=== PATIENT | female | born 1995 | race Caucasian/White ===

== ENCOUNTER 2018-10-07 22:25 | Inpatient (IN) | payer BC, MEDICAID ==
[~2018-10-07] VITALS: Ht 154.9 cm; Wt 51.5 kg
--- NOTE | 2018-10-07 22:41 | NUR ---
Per Poison Control: Check labs for ASA, tylenol, etoh, chem 8 and obtain EKG. Watch for [employer] depression, tachycardia, seizure, QRS widening and QTC prolongation. Not necessary to give charcoal at this point. Re-check tylenol level at 0100; if lab value >150 then given mucamist, if QTC prolongation then optimize electrolytes and if QRS widening then give bicarb bolus; if acetaminophen lab value is <150 then observe for 6 hrs until medically cleared.
[2018-10-07 22:50] LABS: BASOPHILS # (AUTO) 0.1 X10'3 (0-0.2); BASOPHILS % (AUTO) 0.6 % (0-1); EOSINOPHILS # (AUTO) 0.2 X10'3 (0-0.9); EOSINOPHILS % (AUTO) 2.7 % (0-6); HEMATOCRIT 40.8 % (35.0-45.0); HEMOGLOBIN 14.3 g/dl (12.0-16.0); LYMPHOCYTES # (AUTO) 3.3 X10'3 (1.1-4.8); LYMPHOCYTES % (AUTO) 40.6 % (21-51); MEAN CORPUSCULAR HEMOGLOBIN 31.1 PG (27.0-31.0); MEAN PLATELET VOLUME 6.9 FL (7.4-10.4); MONOCYTES # (AUTO) 0.8 X10'3 (0-0.9); MONOCYTES % (AUTO) 9.3 % (2-12); NEUTROPHILS # (AUTO) 3.8 X10'3 (1.8-7.7); NEUTROPHILS % (AUTO) 46.8 % (42-75); PLATELET COUNT 309 X10'3 (140-440); RED BLOOD COUNT 4.59 X10'6 (4.20-5.60); RED CELL DISTRIBUTION WIDTH 12.7 % (11.5-14.5); WHITE BLOOD COUNT 8.1 X10'3 (4.5-11.0)
--- NOTE | 2018-10-07 22:56 | NUR ---
pt up to BR with mother to get ua
[2018-10-07] MEDS ORDERED: NO HOME MEDS (22:57)
--- NOTE | 2018-10-07 23:00 | NUR ---
PLACED IN ROOM, IN BR NOW TO PROVIDE URINE SAMPLE, PARENTS AT BEDSIDE. AWAITIING ER
[2018-10-07] MEDS ORDERED: normal saline 1000ml 1,000 ML IVB ONE (23:04)
[2018-10-07 23:10] LABS: ALANINE AMINOTRANSFERASE 15 U/L (12-78); ALBUMIN 4.4 G/DL (3.4-5.0); ALBUMIN/GLOBULIN RATIO 1.4 (1.1-1.5); ALKALINE PHOSPHATASE 34 IU/L (46-116); ANION GAP 12 (8-16); ASPARTATE AMINO TRANSFERASE 12 U/L (10-37); BILIRUBIN,TOTAL 0.4 MG/DL (0.1-1.0); BLOOD UREA NITROGEN 14 MG/DL (7-18); BUN/CREATININE RATIO 12.6 (6.6-38.0); CALCIUM 9.2 MG/DL (8.5-10.1); CHLORIDE 101 MMOL/L (99-107); CREATININE 1.11 MG/DL (0.40-0.90); ETHANOL < 0.010 GM/DL (0.0-0.010); GLUCOSE 109 MG/DL (70-104); SODIUM 139 MMOL/L (135-145); TOTAL CARBON DIOXIDE 25.9 MMOL/L (24-32); TOTAL PROTEIN 7.5 G/DL (6.4-8.2); eGFR 61 ML/MIN
[2018-10-07 23:13] LABS: ACETAMINOPHEN 136.6 UG/ML (10-30); POTASSIUM 2.9 MMOL/L (3.5-5.1)
[2018-10-07 23:28] LABS: URINE AMPHETAMINE SCREEN NEGATIVE (Neg); URINE BARBITUATE SCREEN NEGATIVE (Neg); URINE BENZODIAZEPINES SCREEN NEGATIVE (Neg); URINE CANNABINOID SCREEN NEGATIVE (Neg); URINE COCAINE SCREEN NEGATIVE (Neg); URINE METHADONE SCREEN NEGATIVE (Neg); URINE OPIATE SCREEN NEGATIVE (Neg); URINE PHENCYCLIDINE SCREEN NEGATIVE (Neg)
[2018-10-07] MEDS ORDERED: potassium Cl 10 mEq/100mL bag IV ONE (23:55)
[2018-10-07] MEDS ORDERED: ondansetron/PF 4mg/2ml inj IV ONE (23:55)
--- NOTE | 2018-10-08 00:17 | NUR ---
Awaiting 1 am tylenol draw. Remains zena 48-54 bpm. current bp 95/52. Parents remains at bedside. Pt is cooperative with care. Given zofran, continues to have nausea. K 10 meq infusing (1st of 2 bags).
--- NOTE | 2018-10-08 02:45 | NUR ---
K+ 10 mEq bag 2 of 2 hung. Pt with no complaints.
[2018-10-08] MEDS ORDERED: potassium Cl 20 mEq SR tablet PO STA (04:37)
[2018-10-08] MEDS ORDERED: ondansetron/PF 4mg/2ml inj IV ONE (04:40)
--- NOTE | 2018-10-08 05:09 | NUR ---
Poison control calling back. He reports that Pt's tylenol level at the 0130 draw is concerning (although trending down). Recommendation to redraw tylenol level now (8 hr since ingestion) and if greater than or equal to 75 she needs to be treated with acetadote. Dr. Greene updated.
[2018-10-08] MEDS ORDERED: BUPR1FIL3 SL (06:17)
[2018-10-08 08:12] LABS: POTASSIUM 3.5 MMOL/L (3.5-5.1)
[2018-10-08 08:16] LABS: ACETAMINOPHEN 95.3 UG/ML (10-30)
[2018-10-08] MEDS ORDERED: DEXTROSE 5% IV ONE ×3 (09:45→14:44)
[2018-10-08] MEDS ORDERED: WATER IV ONE ×3 (09:45→14:44)
[2018-10-08] MEDS ORDERED: ACETYLCYSTEINE IV ONE ×3 (09:45→14:44)
[2018-10-08] MEDS ORDERED: magnesium hydroxide 30ml (MOM) UD suspension PO PRN (10:05)
[2018-10-08] MEDS ORDERED: magnesium 2GM in 50ml NS 50 ML IV PRN (10:05)
[2018-10-08] MEDS ORDERED: potassium Cl 20 mEq SR tablet PO PRN (10:05)
[2018-10-08] MEDS ORDERED: potassium CL 10mEq/100ml bag 100 ML IV PRN (10:05)
[2018-10-08] MEDS: K and/or MAG REPLACEMENT MC SCH (10:05)
[2018-10-08] MEDS ORDERED: mag hydrox/Alum hydrox/simeth 30ml oral suspension PO PRN (10:05)
[2018-10-08] MEDS ORDERED: magnesium Cl slow-release 64mg tablet PO PRN (10:05)
[2018-10-08] MEDS ORDERED: potassium Cl 40MEQ/NS 500ml 500 ML IV PRN (10:05)
[2018-10-08] MEDS ORDERED: magnesium 4gm in 100ml NS 100 ML IV PRN (10:05)
[2018-10-08 10:45] LABS: ALANINE AMINOTRANSFERASE 78 U/L (12-78); ALBUMIN 3.7 G/DL (3.4-5.0); ALBUMIN/GLOBULIN RATIO 1.4 (1.1-1.5); ALKALINE PHOSPHATASE 27 IU/L (46-116); ANION GAP 7 (8-16); ASPARTATE AMINO TRANSFERASE 68 U/L (10-37); BILIRUBIN,TOTAL 0.4 MG/DL (0.1-1.0); BLOOD UREA NITROGEN 12 MG/DL (7-18); BUN/CREATININE RATIO 14.3 (6.6-38.0); CALCIUM 8.7 MG/DL (8.5-10.1); CHLORIDE 106 MMOL/L (99-107); CREATININE 0.84 MG/DL (0.40-0.90); GLUCOSE 112 MG/DL (70-104); POTASSIUM 3.7 MMOL/L (3.5-5.1); SODIUM 137 MMOL/L (135-145); TOTAL CARBON DIOXIDE 24.3 MMOL/L (24-32); TOTAL PROTEIN 6.3 G/DL (6.4-8.2); eGFR 84 ML/MIN
[2018-10-08 11:05] LABS: PARTIAL THROMBOPLASTIN TIME 24 SECONDS (22-32)
[2018-10-08] MEDS: ondansetron/PF 4mg/2ml inj IV PRN (11:35)
--- NOTE | 2018-10-08 12:17 | NUR ---
ATTEMPT TO GIVE REPORT TO RN POLAR AT THIS TIME. RN TO CALL BACK. CN MADE AWARE.
[2018-10-08 12:28] LABS: CLARITY,URINE CLOUDY (Clear); COLOR,URINE YELLOW (Yellow); GLUCOSE, URINE NEGATIVE (Neg); KETONES,URINE >=80 mg/dl (Neg); LEUKOCYTE ESTERASE ,URINE SMALL (Neg); NITRITES, URINE NEGATIVE (Neg); OCCULT BLOOD,URINE NEGATIVE (Neg); PROTEIN,URINE TRACE mg/dl (Neg)
[2018-10-08 12:31] LABS: UA COLLECTION TYPE CLN CATCH MIDSTREAM
[2018-10-08 12:43] LABS: RBC,URINE NONE SEEN /HPF (0-2); WBC,URINE 20-30 /HPF (0-4)
[2018-10-08 12:44] LABS: AMORPHOUS PHOSPHATES 3+
[2018-10-08 12:45] LABS: BACTERIA,URINE 1+ /HPF (Neg); MUCUS STRANDS MODERATE /LPF (Neg); RENAL CELLS, URINE MODERATE /HPF; SQUAMOUS EPITHELIAL CELL,UR MANY /LPF (FEW); TRANSITIONAL EPI CELLS,URINE FEW /HPF
[2018-10-08] MEDS: normal saline 1000ml 1,000 ML IV SCH ×2 (13:00→20:04)
[2018-10-08 13:05] VITALS: BP 126/87
--- NOTE | 2018-10-08 13:05 | NUR ---
Pt received to room 355b via wc, VSS. Mother and sitter at bedside. Patient is A&O at this time.
[2018-10-08 15:30] LABS: URINE HCG NEGATIVE (NEG)
--- NOTE | 2018-10-08 18:19 | NUR ---
Problems reprioritized. Patient report given, questions answered & plan of care reviewed with Crys. Addendum: 10/08/18 at 1819 by Celine Pelayo RN Amended: Links added.
[2018-10-08 19:00] VITALS: BP 129/83
[2018-10-08] MEDS: CefTRIAXone/D5W-Rocephin 1gm 50 ML IV SCH (23:52)
[2018-10-09] VITALS: BP 109/79
[2018-10-09 06:01] LABS: BASOPHILS # (AUTO) 0.1 X10'3 (0-0.2); BASOPHILS % (AUTO) 0.8 % (0-1); EOSINOPHILS # (AUTO) 0.2 X10'3 (0-0.9); EOSINOPHILS % (AUTO) 2.4 % (0-6); HEMATOCRIT 38.5 % (35.0-45.0); HEMOGLOBIN 13.6 g/dl (12.0-16.0); LYMPHOCYTES # (AUTO) 1.8 X10'3 (1.1-4.8); LYMPHOCYTES % (AUTO) 27.2 % (21-51); MEAN CORPUSCULAR HEMOGLOBIN 31.5 PG (27.0-31.0); MEAN CORPUSCULAR HGB CONC 35.3 g/dL (33.0-36.5); MEAN CORPUSCULAR VOLUME 89.4 FL (78-98); MEAN PLATELET VOLUME 7.8 FL (7.4-10.4); MONOCYTES # (AUTO) 0.5 X10'3 (0-0.9); MONOCYTES % (AUTO) 7.3 % (2-12); NEUTROPHILS # (AUTO) 4.1 X10'3 (1.8-7.7); NEUTROPHILS % (AUTO) 62.3 % (42-75); PLATELET COUNT 230 X10'3 (140-440); RED CELL DISTRIBUTION WIDTH 12.7 % (11.5-14.5); WHITE BLOOD COUNT 6.5 X10'3 (4.5-11.0)
[2018-10-09] MEDS: normal saline 1000ml 1,000 ML IV SCH ×3 (06:04→21:31)
[2018-10-09 06:23] LABS: PARTIAL THROMBOPLASTIN TIME 26 SECONDS (22-32)
--- NOTE | 2018-10-09 06:30 | NUR ---
Problems reprioritized. Patient report given, questions answered & plan of care reviewed with Crys. Addendum: 10/09/18 at 8134 by Celine Pelayo RN Amended: Links added.
[2018-10-09 06:48] LABS: ALANINE AMINOTRANSFERASE 130 U/L (12-78); ALBUMIN 3.2 G/DL (3.4-5.0); ALBUMIN/GLOBULIN RATIO 1.2 (1.1-1.5); ALKALINE PHOSPHATASE 26 IU/L (46-116); ANION GAP 10 (8-16); ASPARTATE AMINO TRANSFERASE 98 U/L (10-37); BILIRUBIN,TOTAL 0.4 MG/DL (0.1-1.0); BLOOD UREA NITROGEN 6 MG/DL (7-18); BUN/CREATININE RATIO 7.5 (6.6-38.0); CALCIUM 8.5 MG/DL (8.5-10.1); CHLORIDE 106 MMOL/L (99-107); GLUCOSE 114 MG/DL (70-104); MAGNESIUM 1.8 MG/DL (1.5-2.4); PHOSPHORUS 2.8 MG/DL (2.3-4.5); POTASSIUM 3.3 MMOL/L (3.5-5.1); SODIUM 138 MMOL/L (135-145); TOTAL PROTEIN 5.9 G/DL (6.4-8.2); eGFR 89 ML/MIN
--- NOTE | 2018-10-09 06:52 | NUR ---
Problems reprioritized. Patient report given, questions answered & plan of care reviewed with Celine DONNELLY.
[2018-10-09 07:00] VITALS: BP 102/65
[2018-10-09] MEDS: K and/or MAG REPLACEMENT MC SCH (08:00)
[2018-10-09] MEDS: CefTRIAXone/D5W-Rocephin 1gm 50 ML IV SCH (08:00)
[2018-10-09] MEDS: potassium Cl 20 mEq SR tablet PO PRN ×2 (08:00→22:46)
[2018-10-09] MEDS ORDERED: WATER IV STA (09:31)
[2018-10-09] MEDS ORDERED: ACETYLCYSTEINE IV STA (09:31)
[2018-10-09] MEDS ORDERED: DEXTROSE 5% IV STA (09:31)
--- NOTE | 2018-10-09 09:34 | NUR ---
Spoke with Dr. Torres and Poison Control, will continue infusion for elevated LFT's. Spoke with Pharmacist as well.
[2018-10-09 11:59] VITALS: BP 106/59
--- NOTE | 2018-10-09 18:15 | NUR ---
Patient in room [facility]. I have received report from Celine DONNELLY and had the opportunity to ask questions and assume patient care.
--- NOTE | 2018-10-09 18:43 | NUR ---
Problems reprioritized. Patient report given, questions answered & plan of care reviewed with Carmencita. Addendum: 10/09/18 at 1843 by Celine Pelayo RN Amended: Links added.
[2018-10-09 20:00] VITALS: BP 129/91
[2018-10-09] MEDS: lactobacillus rhamnosus 10,000 MMU CELLS/CAPSULE PO SCH (21:29)
[2018-10-10] VITALS: BP 116/63
--- NOTE | 2018-10-10 01:15 | NUR ---
Poison control called this morning. Patient's mucomyst drip bag only has less than 100ml left in bag They recommended to recheck LFT's and INR now and Call them back with the results the results. Depending on the results will decide if patient needs another 16hr of mucomyst drip.
[2018-10-10 01:41] LABS: BASOPHILS # (AUTO) 0.1 X10'3 (0-0.2); BASOPHILS % (AUTO) 0.6 % (0-1); EOSINOPHILS # (AUTO) 0.3 X10'3 (0-0.9); EOSINOPHILS % (AUTO) 3.1 % (0-6); HEMATOCRIT 38.7 % (35.0-45.0); HEMOGLOBIN 13.3 g/dl (12.0-16.0); LYMPHOCYTES # (AUTO) 1.7 X10'3 (1.1-4.8); LYMPHOCYTES % (AUTO) 20.1 % (21-51); MEAN CORPUSCULAR HEMOGLOBIN 31.3 PG (27.0-31.0); MEAN CORPUSCULAR HGB CONC 34.4 g/dL (33.0-36.5); MEAN CORPUSCULAR VOLUME 90.8 FL (78-98); MEAN PLATELET VOLUME 7.4 FL (7.4-10.4); MONOCYTES # (AUTO) 0.5 X10'3 (0-0.9); MONOCYTES % (AUTO) 6.3 % (2-12); NEUTROPHILS # (AUTO) 5.8 X10'3 (1.8-7.7); NEUTROPHILS % (AUTO) 69.9 % (42-75); PLATELET COUNT 198 X10'3 (140-440); RED BLOOD COUNT 4.26 X10'6 (4.20-5.60); RED CELL DISTRIBUTION WIDTH 12.8 % (11.5-14.5); WHITE BLOOD COUNT 8.4 X10'3 (4.5-11.0)
[2018-10-10 01:51] LABS: ACETAMINOPHEN 2.2 UG/ML (10-30); ALANINE AMINOTRANSFERASE 497 U/L (12-78); ALBUMIN 3.1 G/DL (3.4-5.0); ALBUMIN/GLOBULIN RATIO 1.1 (1.1-1.5); ALKALINE PHOSPHATASE 38 IU/L (46-116); ANION GAP 5 (8-16); ASPARTATE AMINO TRANSFERASE 351 U/L (10-37); BILIRUBIN,TOTAL 0.2 MG/DL (0.1-1.0); BLOOD UREA NITROGEN 8 MG/DL (7-18); BUN/CREATININE RATIO 10.8 (6.6-38.0); CALCIUM 8.6 MG/DL (8.5-10.1); CHLORIDE 109 MMOL/L (99-107); CREATININE 0.74 MG/DL (0.40-0.90); GLUCOSE 119 MG/DL (70-104); MAGNESIUM 1.7 MG/DL (1.5-2.4); PHOSPHORUS 2.8 MG/DL (2.3-4.5); POTASSIUM 3.7 MMOL/L (3.5-5.1); SODIUM 140 MMOL/L (135-145); TOTAL CARBON DIOXIDE 25.8 MMOL/L (24-32); TOTAL PROTEIN 5.9 G/DL (6.4-8.2); eGFR > 90 ML/MIN
[2018-10-10 02:15] LABS: PARTIAL THROMBOPLASTIN TIME 24 SECONDS (22-32)
--- NOTE | 2018-10-10 02:30 | NUR ---
Poison control called again to report lab values AST-351, ALT-497, acetaminophen 2.2, INR-1.2. Recommended to continue with Mucomyst gtt for another 16hr, 100mh/kg. Also Recommends 1 hr prior to bag being empty to check Lab values LFT's, INR, and Acetaminophen. and call them with result for recommendations. Any questions to call Poison control.
[2018-10-10] MEDS ORDERED: DEXTROSE 5% IV ONE ×2 (02:40→18:50)
[2018-10-10] MEDS ORDERED: WATER IV ONE ×2 (02:40→18:50)
[2018-10-10] MEDS ORDERED: ACETYLCYSTEINE IV ONE ×2 (02:40→18:50)
--- NOTE | 2018-10-10 06:30 | NUR ---
Patient in room [facility]. I have received report from Richard DONNELLY and had the opportunity to ask questions and assume patient care.
[2018-10-10 07:00] VITALS: BP 123/77
[2018-10-10] MEDS: K and/or MAG REPLACEMENT MC SCH (08:00)
--- NOTE | 2018-10-10 08:06 | NUR ---
Patient in room [facility]. I have received report from ANDRZEJ Guzman and had the opportunity to ask questions and assume patient care.
[2018-10-10] MEDS: CefTRIAXone/D5W-Rocephin 1gm 50 ML IV SCH (08:18)
[2018-10-10] MEDS: lactobacillus rhamnosus 10,000 MMU CELLS/CAPSULE PO SCH ×2 (08:19→22:35)
--- NOTE | 2018-10-10 08:30 | NUR ---
Problems reprioritized. Patient report given, questions answered & plan of care reviewed with Barbara RN.
[2018-10-10 11:00] VITALS: BP 109/63
[2018-10-10 11:40] LABS: BILIRUBIN,DIRECT 0.1 MG/DL (0-0.3)
[2018-10-10] MEDS: normal saline 1000ml 1,000 ML IV SCH (18:02)
--- NOTE | 2018-10-10 18:10 | NUR ---
Patient in room [facility]. I have received report from Barbara DONNELLY and had the opportunity to ask questions and assume patient care.
--- NOTE | 2018-10-10 18:15 | NUR ---
Spoke to Poison Control. Communicated that per MD today ordered Hepatitis lipid panel for today and lab results are still pending. Called lab several times, lab results are still pending. Rosario from Poison Control stated to call back when results are back to see if patient will need another dose of acetylcysteine IV.
[2018-10-10 18:36] LABS: ALBUMIN 3.2 G/DL (3.4-5.0); ALBUMIN/GLOBULIN RATIO 1.1 (1.1-1.5); BILIRUBIN,DIRECT 0.1 MG/DL (0-0.3); BILIRUBIN,TOTAL 0.3 MG/DL (0.1-1.0); TOTAL PROTEIN 6.2 G/DL (6.4-8.2)
[2018-10-10 18:37] LABS: ACETAMINOPHEN < 2.0 UG/ML (10-30); ALANINE AMINOTRANSFERASE 852 U/L (12-78); ALKALINE PHOSPHATASE 34 IU/L (46-116); ASPARTATE AMINO TRANSFERASE 557 U/L (10-37)
[2018-10-10] MEDS ORDERED: acetylcysteine IV (Acetadote) 0 MG in dextrose 5%-water 1,000 ML IV ONE (18:45)
--- NOTE | 2018-10-10 18:49 | NUR ---
Problems reprioritized. Patient report given, questions answered & plan of care reviewed with ANDRZEJ Tse and ANDRZEJ Ramos.
--- NOTE | 2018-10-10 19:21 | NUR ---
Called poison control with updated LFT (AST 557, ALT 852). Recommended continuing Mucomyst drip for 16 hours, repeat LFTs, Acetaminophen, INR values one hour prior to bag being empty. Call for further recommendations with new lab values.
[2018-10-10 20:08] VITALS: BP 133/79
[2018-10-11] VITALS: BP 118/84
[2018-10-11 05:22] LABS: TOTAL CARBON DIOXIDE 26.7 MMOL/L (24-32)
[2018-10-11 05:27] LABS: BASOPHILS # (AUTO) 0.1 X10'3 (0-0.2); BASOPHILS % (AUTO) 0.9 % (0-1); EOSINOPHILS # (AUTO) 0.4 X10'3 (0-0.9); EOSINOPHILS % (AUTO) 5.5 % (0-6); HEMATOCRIT 36.9 % (35.0-45.0); HEMOGLOBIN 13.1 g/dl (12.0-16.0); LYMPHOCYTES # (AUTO) 1.3 X10'3 (1.1-4.8); LYMPHOCYTES % (AUTO) 18.8 % (21-51); MEAN CORPUSCULAR HEMOGLOBIN 31.9 PG (27.0-31.0); MEAN CORPUSCULAR HGB CONC 35.6 g/dL (33.0-36.5); MEAN CORPUSCULAR VOLUME 89.6 FL (78-98); MEAN PLATELET VOLUME 7.6 FL (7.4-10.4); MONOCYTES # (AUTO) 0.5 X10'3 (0-0.9); MONOCYTES % (AUTO) 7.3 % (2-12); NEUTROPHILS # (AUTO) 4.6 X10'3 (1.8-7.7); NEUTROPHILS % (AUTO) 67.5 % (42-75); PLATELET COUNT 173 X10'3 (140-440); RED BLOOD COUNT 4.12 X10'6 (4.20-5.60); RED CELL DISTRIBUTION WIDTH 13.3 % (11.5-14.5); WHITE BLOOD COUNT 6.9 X10'3 (4.5-11.0)
[2018-10-11 05:40] LABS: PARTIAL THROMBOPLASTIN TIME 24 SECONDS (22-32)
--- NOTE | 2018-10-11 06:24 | NUR ---
Patient in room [facility]. I have received report from Richard DONNELLY and had the opportunity to ask questions and assume patient care.
--- NOTE | 2018-10-11 06:47 | NUR ---
Problems reprioritized. Patient report given, questions answered & plan of care reviewed with Lizette DONNELLY.
[2018-10-11 07:00] VITALS: BP 105/70
[2018-10-11 07:05] LABS: ALBUMIN 2.9 G/DL (3.4-5.0); ALBUMIN/GLOBULIN RATIO 0.9 (1.1-1.5); ALKALINE PHOSPHATASE 27 IU/L (46-116); ANION GAP 5 (8-16); ASPARTATE AMINO TRANSFERASE 761 U/L (10-37); BILIRUBIN,DIRECT 0.1 MG/DL (0-0.3); BILIRUBIN,TOTAL 0.2 MG/DL (0.1-1.0); BLOOD UREA NITROGEN 5 MG/DL (7-18); BUN/CREATININE RATIO 7.6 (6.6-38.0); CALCIUM 8.4 MG/DL (8.5-10.1); CHLORIDE 108 MMOL/L (99-107); CREATININE 0.66 MG/DL (0.40-0.90); GLUCOSE 102 MG/DL (70-104); MAGNESIUM 1.7 MG/DL (1.5-2.4); POTASSIUM 3.5 MMOL/L (3.5-5.1); SODIUM 140 MMOL/L (135-145); eGFR > 90 ML/MIN
[2018-10-11 07:06] LABS: ALANINE AMINOTRANSFERASE 1196 U/L (12-78)
[2018-10-11] MEDS: CefTRIAXone/D5W-Rocephin 1gm 50 ML IV SCH (07:34)
[2018-10-11] MEDS: lactobacillus rhamnosus 10,000 MMU CELLS/CAPSULE PO SCH ×2 (07:34→19:12)
[2018-10-11] MEDS: K and/or MAG REPLACEMENT MC SCH (08:00)
[2018-10-11 11:00] VITALS: BP 100/69
[2018-10-11 11:33] LABS: ALBUMIN 2.9 G/DL (3.4-5.0); ALKALINE PHOSPHATASE 25 IU/L (46-116); BILIRUBIN,TOTAL 0.2 MG/DL (0.1-1.0); TOTAL PROTEIN 5.9 G/DL (6.4-8.2)
[2018-10-11 11:36] LABS: ACETAMINOPHEN < 2.0 UG/ML (10-30); ALANINE AMINOTRANSFERASE 1514 U/L (12-78); ASPARTATE AMINO TRANSFERASE 1048 U/L (10-37)
[2018-10-11] MEDS ORDERED: acetylcysteine IV (Acetadote) 0 MG in dextrose 5%-water 1,000 ML IV ONE (12:25)
--- NOTE | 2018-10-11 12:27 | NUR ---
patient seen by Dr edwards. LFT, acetaminophen and INR level rechecked. Enzymes elevated, see lab results.Poison control centre called. Acetadote to be continued at same rate over 16hrs. Will recheck in 6hrs. Dr Edwards aware.
[2018-10-11] MEDS ORDERED: WATER IV ONE (12:30)
[2018-10-11] MEDS ORDERED: DEXTROSE 5% IV ONE (12:30)
[2018-10-11] MEDS ORDERED: ACETYLCYSTEINE IV ONE (12:30)
[2018-10-11] MEDS: normal saline 1000ml 1,000 ML IV SCH (13:25)
[2018-10-11 17:12] LABS: ALBUMIN 2.9 G/DL (3.4-5.0); ALKALINE PHOSPHATASE 26 IU/L (46-116); BILIRUBIN,DIRECT 0.1 MG/DL (0-0.3); BILIRUBIN,TOTAL 0.2 MG/DL (0.1-1.0); TOTAL PROTEIN 5.9 G/DL (6.4-8.2)
[2018-10-11 17:16] LABS: ALANINE AMINOTRANSFERASE 1781 U/L (12-78); ASPARTATE AMINO TRANSFERASE 1133 U/L (10-37)
--- NOTE | 2018-10-11 17:57 | NUR ---
AST 1133, ALT [address] DR Asher called and Poison centre called and informed. Recommendation given to continue Acetadote. will continue to monitor.
--- NOTE | 2018-10-11 18:20 | NUR ---
Patient in room [facility]. I have received report from Lizette DONNELLY and had the opportunity to ask questions and assume patient care.
--- NOTE | 2018-10-11 18:28 | NUR ---
Problems reprioritized. Patient report given, questions answered & plan of care reviewed with Richard DONNELLY.
[2018-10-11] MEDS: ondansetron/PF 4mg/2ml inj IV PRN (19:21)
[2018-10-11 20:00] VITALS: BP 113/70
[2018-10-11 22:06] LABS: ALBUMIN 2.8 G/DL (3.4-5.0); ALBUMIN/GLOBULIN RATIO 0.9 (1.1-1.5); ALKALINE PHOSPHATASE 26 IU/L (46-116); BILIRUBIN,DIRECT 0.1 MG/DL (0-0.3); BILIRUBIN,TOTAL 0.2 MG/DL (0.1-1.0); TOTAL PROTEIN 5.8 G/DL (6.4-8.2)
[2018-10-11 22:07] LABS: ALANINE AMINOTRANSFERASE 1930 U/L (12-78); ASPARTATE AMINO TRANSFERASE 1172 U/L (10-37)
[2018-10-12] VITALS: BP 105/54
[2018-10-12 04:22] LABS: BASOPHILS # (AUTO) 0.1 X10'3 (0-0.2); BASOPHILS % (AUTO) 0.9 % (0-1); EOSINOPHILS # (AUTO) 0.3 X10'3 (0-0.9); EOSINOPHILS % (AUTO) 5.9 % (0-6); HEMATOCRIT 32.8 % (35.0-45.0); HEMOGLOBIN 11.6 g/dl (12.0-16.0); LYMPHOCYTES # (AUTO) 1.7 X10'3 (1.1-4.8); LYMPHOCYTES % (AUTO) 29.9 % (21-51); MEAN CORPUSCULAR HEMOGLOBIN 32.3 PG (27.0-31.0); MEAN CORPUSCULAR HGB CONC 35.4 g/dL (33.0-36.5); MEAN CORPUSCULAR VOLUME 91.2 FL (78-98); MEAN PLATELET VOLUME 7.7 FL (7.4-10.4); MONOCYTES # (AUTO) 0.5 X10'3 (0-0.9); MONOCYTES % (AUTO) 9.2 % (2-12); NEUTROPHILS # (AUTO) 3.1 X10'3 (1.8-7.7); NEUTROPHILS % (AUTO) 54.1 % (42-75); PLATELET COUNT 136 X10'3 (140-440); WHITE BLOOD COUNT 5.7 X10'3 (4.5-11.0)
[2018-10-12 04:29] LABS: ALBUMIN 2.7 G/DL (3.4-5.0); ALBUMIN/GLOBULIN RATIO 0.9 (1.1-1.5); ALKALINE PHOSPHATASE 22 IU/L (46-116); ANION GAP 5 (8-16); BILIRUBIN,TOTAL 0.2 MG/DL (0.1-1.0); BLOOD UREA NITROGEN 4 MG/DL (7-18); BUN/CREATININE RATIO 6.3 (6.6-38.0); CALCIUM 8.5 MG/DL (8.5-10.1); CHLORIDE 109 MMOL/L (99-107); CREATININE 0.63 MG/DL (0.40-0.90); GLUCOSE 93 MG/DL (70-104); MAGNESIUM 1.9 MG/DL (1.5-2.4); PHOSPHORUS 3.3 MG/DL (2.3-4.5); POTASSIUM 3.7 MMOL/L (3.5-5.1); SODIUM 140 MMOL/L (135-145); TOTAL CARBON DIOXIDE 26.2 MMOL/L (24-32); TOTAL PROTEIN 5.7 G/DL (6.4-8.2); eGFR > 90 ML/MIN
[2018-10-12 04:36] LABS: ALANINE AMINOTRANSFERASE 1983 U/L (12-78); ASPARTATE AMINO TRANSFERASE 1039 U/L (10-37)
[2018-10-12] MEDS ORDERED: DEXTROSE 5% IV ONE ×5 (04:45→20:00)
[2018-10-12] MEDS ORDERED: WATER IV ONE ×5 (04:45→20:00)
[2018-10-12] MEDS ORDERED: ACETYLCYSTEINE IV ONE ×5 (04:45→20:00)
[2018-10-12 04:50] LABS: BILIRUBIN,DIRECT 0.1 MG/DL (0-0.3)
--- NOTE | 2018-10-12 04:50 | NUR ---
Called Poison Control and spoke with Nando for lab values of AST 1039, ALT 1983, INR 1. Poison Control recommended to repeat 16 hour 100mg/kg Acetadote bag and call with new values an hour before the bad runs out for further instructions.
--- NOTE | 2018-10-12 06:12 | NUR ---
Problems reprioritized. Patient report given, questions answered & plan of care reviewed with Lizette DONNELLY.
--- NOTE | 2018-10-12 06:49 | NUR ---
Patient in room [facility]. I have received report from Richard DONNELLY and had the opportunity to ask questions and assume patient care.
--- NOTE | 2018-10-12 06:52 | NUR ---
Agree with care observed and charting reviewed for Richard DONNELLY.
[2018-10-12 07:00] VITALS: BP 98/67
[2018-10-12] MEDS: K and/or MAG REPLACEMENT MC SCH (08:00)
[2018-10-12] MEDS: lactobacillus rhamnosus 10,000 MMU CELLS/CAPSULE PO SCH ×2 (10:26→19:26)
[2018-10-12] MEDS: normal saline 1000ml 1,000 ML IV SCH (10:27)
[2018-10-12 11:00] VITALS: BP 104/63
[2018-10-12 11:43] LABS: ALBUMIN 2.9 G/DL (3.4-5.0); ALBUMIN/GLOBULIN RATIO 0.9 (1.1-1.5); ALKALINE PHOSPHATASE 21 IU/L (46-116); ASPARTATE AMINO TRANSFERASE 813 U/L (10-37); BILIRUBIN,TOTAL 0.2 MG/DL (0.1-1.0); TOTAL PROTEIN 6.1 G/DL (6.4-8.2)
[2018-10-12 11:45] LABS: ALANINE AMINOTRANSFERASE 1971 U/L (12-78)
[2018-10-12 18:00] VITALS: BP 111/74
--- NOTE | 2018-10-12 18:30 | NUR ---
Patient in room [facility]. I have received report from ANDRZEJ Bauer and had the opportunity to ask questions and assume patient care.
--- NOTE | 2018-10-12 18:46 | NUR ---
Good shift for patient Liver panel and INR now done Q8rly Poison control called with results and advises with Acetadote Infusion. patient seen by Dr Asher still is 1799, sitter present in room. No suicidal expression. Mother present in room. report given to Jazmin DONNELLY
[2018-10-12 20:15] LABS: ALBUMIN/GLOBULIN RATIO 0.9 (1.1-1.5); ALKALINE PHOSPHATASE 25 IU/L (46-116); BILIRUBIN,TOTAL 0.2 MG/DL (0.1-1.0); TOTAL PROTEIN 6.2 G/DL (6.4-8.2)
[2018-10-12 20:18] LABS: ALANINE AMINOTRANSFERASE 1768 U/L (12-78); ASPARTATE AMINO TRANSFERASE 538 U/L (10-37)
[2018-10-12 20:24] LABS: BILIRUBIN,DIRECT 0.1 MG/DL (0-0.3)
--- NOTE | 2018-10-12 20:43 | NUR ---
Spoke to Poison Control and based on patients most recent labs, they recommend the next bag of Acetadote to be given at 62.5 mL/hr
[2018-10-13] VITALS: BP 121/55
[2018-10-13] MEDS: normal saline 1000ml 1,000 ML IV SCH (05:03)
[2018-10-13 05:13] LABS: BASOPHILS # (AUTO) 0.1 X10'3 (0-0.2); BASOPHILS % (AUTO) 1.2 % (0-1); EOSINOPHILS # (AUTO) 0.5 X10'3 (0-0.9); EOSINOPHILS % (AUTO) 10.5 % (0-6); HEMATOCRIT 33.6 % (35.0-45.0); LYMPHOCYTES # (AUTO) 1.7 X10'3 (1.1-4.8); LYMPHOCYTES % (AUTO) 35.2 % (21-51); MEAN CORPUSCULAR HEMOGLOBIN 32.3 PG (27.0-31.0); MEAN CORPUSCULAR HGB CONC 35.8 g/dL (33.0-36.5); MEAN CORPUSCULAR VOLUME 90.4 FL (78-98); MEAN PLATELET VOLUME 7.6 FL (7.4-10.4); MONOCYTES # (AUTO) 0.5 X10'3 (0-0.9); MONOCYTES % (AUTO) 9.4 % (2-12); NEUTROPHILS # (AUTO) 2.1 X10'3 (1.8-7.7); NEUTROPHILS % (AUTO) 43.7 % (42-75); PLATELET COUNT 166 X10'3 (140-440); RED BLOOD COUNT 3.72 X10'6 (4.20-5.60); RED CELL DISTRIBUTION WIDTH 12.9 % (11.5-14.5); WHITE BLOOD COUNT 4.8 X10'3 (4.5-11.0)
[2018-10-13 05:45] LABS: ALBUMIN 2.8 G/DL (3.4-5.0); ALBUMIN/GLOBULIN RATIO 0.9 (1.1-1.5); ALKALINE PHOSPHATASE 23 IU/L (46-116); ANION GAP 7 (8-16); ASPARTATE AMINO TRANSFERASE 331 U/L (10-37); BILIRUBIN,DIRECT 0.1 MG/DL (0-0.3); BILIRUBIN,TOTAL 0.3 MG/DL (0.1-1.0); BLOOD UREA NITROGEN 4 MG/DL (7-18); BUN/CREATININE RATIO 6.8 (6.6-38.0); CALCIUM 8.8 MG/DL (8.5-10.1); CHLORIDE 108 MMOL/L (99-107); CREATININE 0.59 MG/DL (0.40-0.90); GLUCOSE 82 MG/DL (70-104); MAGNESIUM 1.9 MG/DL (1.5-2.4); PHOSPHORUS 3.8 MG/DL (2.3-4.5); POTASSIUM 3.6 MMOL/L (3.5-5.1); SODIUM 142 MMOL/L (135-145); TOTAL CARBON DIOXIDE 26.8 MMOL/L (24-32); TOTAL PROTEIN 5.9 G/DL (6.4-8.2); eGFR > 90 ML/MIN
[2018-10-13 05:47] LABS: ALANINE AMINOTRANSFERASE 1375 U/L (12-78)
--- NOTE | 2018-10-13 06:35 | NUR ---
Patient in room [facility]. I have received report from ANDRZEJ Barker and had the opportunity to ask questions and assume patient care.
--- NOTE | 2018-10-13 06:50 | NUR ---
Problems reprioritized. Patient report given, questions answered & plan of care reviewed with ANDRZEJ Schofield.
[2018-10-13] MEDS: K and/or MAG REPLACEMENT MC SCH (08:00)
[2018-10-13 08:10] VITALS: BP 118/69
[2018-10-13] MEDS: lactobacillus rhamnosus 10,000 MMU CELLS/CAPSULE PO SCH ×2 (09:08→19:26)
[2018-10-13 11:30] VITALS: BP 93/53
[2018-10-13 11:35] LABS: ALBUMIN 2.9 G/DL (3.4-5.0); ALBUMIN/GLOBULIN RATIO 0.9 (1.1-1.5); ALKALINE PHOSPHATASE 24 IU/L (46-116); ASPARTATE AMINO TRANSFERASE 255 U/L (10-37); BILIRUBIN,DIRECT 0.1 MG/DL (0-0.3); BILIRUBIN,TOTAL 0.3 MG/DL (0.1-1.0); TOTAL PROTEIN 6.1 G/DL (6.4-8.2)
[2018-10-13 11:38] LABS: ALANINE AMINOTRANSFERASE 1325 U/L (12-78)
[2018-10-13] MEDS ORDERED: DEXTROSE 5% IV ONE (12:25)
[2018-10-13] MEDS ORDERED: ACETYLCYSTEINE IV ONE (12:25)
[2018-10-13] MEDS ORDERED: WATER IV ONE (12:25)
--- NOTE | 2018-10-13 18:10 | NUR ---
Problems reprioritized. Patient report given, questions answered & plan of care reviewed with Julia Trejo RN.
[2018-10-13 18:25] LABS: ALBUMIN 3.1 G/DL (3.4-5.0); ALBUMIN/GLOBULIN RATIO 0.9 (1.1-1.5); ALKALINE PHOSPHATASE 29 IU/L (46-116); ASPARTATE AMINO TRANSFERASE 199 U/L (10-37); BILIRUBIN,DIRECT 0.1 MG/DL (0-0.3); BILIRUBIN,TOTAL 0.3 MG/DL (0.1-1.0); TOTAL PROTEIN 6.5 G/DL (6.4-8.2)
--- NOTE | 2018-10-13 18:26 | NUR ---
Patient in room [facility]. I have received report from ANDRZEJ Murry and had the opportunity to ask questions and assume patient care.
[2018-10-13 18:34] LABS: ALANINE AMINOTRANSFERASE 1285 U/L (12-78)
[2018-10-13 20:00] VITALS: BP 94/55
[2018-10-14] VITALS: BP 91/50
[2018-10-14 06:19] LABS: ALANINE AMINOTRANSFERASE 989 U/L (12-78); ALBUMIN/GLOBULIN RATIO 0.9 (1.1-1.5); ALKALINE PHOSPHATASE 25 IU/L (46-116); ANION GAP 7 (8-16); ASPARTATE AMINO TRANSFERASE 121 U/L (10-37); BILIRUBIN,TOTAL 0.3 MG/DL (0.1-1.0); BLOOD UREA NITROGEN 5 MG/DL (7-18); CHLORIDE 107 MMOL/L (99-107); CREATININE 0.71 MG/DL (0.40-0.90); GLUCOSE 84 MG/DL (70-104); POTASSIUM 3.8 MMOL/L (3.5-5.1); SODIUM 142 MMOL/L (135-145); TOTAL CARBON DIOXIDE 27.7 MMOL/L (24-32); TOTAL PROTEIN 6.3 G/DL (6.4-8.2); eGFR > 90 ML/MIN
--- NOTE | 2018-10-14 06:47 | NUR ---
Patient in room [facility]. I have received report from Julia Cannon RN and had the opportunity to ask questions and assume patient care.
--- NOTE | 2018-10-14 06:51 | NUR ---
Problems reprioritized. Patient report given, questions answered & plan of care reviewed with ANDRZEJ matthew.
[2018-10-14 07:00] VITALS: BP 100/62
[2018-10-14] MEDS: K and/or MAG REPLACEMENT MC SCH (08:00)
--- NOTE | 2018-10-14 09:08 | NUR ---
Asif from poison control contacted primary RN for current LFT and INR. AST and ALT drawn 10/14 reported. Primary RN was informed that continued administration of Acetadote is not necessary at this time. Will inform hospitalist and continue to monitor.
[2018-10-14] MEDS ORDERED: NO HOME MEDS (09:51)
[2018-10-14] MEDS: lactobacillus rhamnosus 10,000 MMU CELLS/CAPSULE PO SCH ×2 (10:06→19:54)
[2018-10-14] MEDS: normal saline 1000ml 1,000 ML IV SCH (10:20)
[2018-10-14 11:30] VITALS: BP 93/51
--- NOTE | 2018-10-14 18:24 | NUR ---
Patient in room [facility]. I have received report from ANDRZEJ Oden and had the opportunity to ask questions and assume patient care.
--- NOTE | 2018-10-14 18:24 | NUR ---
Problems reprioritized. Patient report given, questions answered & plan of care reviewed with Julia Cannon RN.
[2018-10-14 20:00] VITALS: BP 88/53
--- NOTE | 2018-10-14 20:00 | NUR ---
Patient has all belongings. DC information provided to pt. Pt's parents on their way to get patient. Removed IV, IV was intact. DC information provided. Advised pt [facility] facility will contact her within the week to schedule follow up appointments. VSS, patient independent. Sitter walked patient and parents to hospital entrance for discharge.
== END 2018-10-14 20:00 | disposition home or self-care (01) | DRG 812 ==
LOC: ER 22:25 → SUR 3N 10-08 11:46 → CMPBEDREQ 10-08 19:44
PROVIDERS: ADMIT Family Medicine; ATTEND Family Medicine
DX: T39.1X1A Poisoning by 4-Aminophenol derivatives, accidental (unintentional), initial encounter (principal); N17.9 Acute kidney failure, unspecified; E86.0 Dehydration; E87.6 Hypokalemia; F17.200 Nicotine dependence, unspecified, uncomplicated; R74.0 Nonspecific elevation of levels of transaminase and lactic acid dehydrogenase [LDH]; F32.9 Major depressive disorder, single episode, unspecified; F43.25 Adjustment disorder with mixed disturbance of emotions and conduct; F90.9 Attention-deficit hyperactivity disorder, unspecified type; Z80.8 Family history of malignant neoplasm of other organs or systems; Z86.59 Personal history of other mental and behavioral disorders; Y92.89 Other specified places as the place of occurrence of the external cause; Z79.899 Other long term (current) drug therapy
CPT/HCPCS: 36415; 76700; 80053; 80076; 80305; 80320; 80329; 81001; 81025; 82248; 83735; 84100; 84132; 85025; 85610; 85730; 87040; 87070; 87088; 93005; 96365; 96375; 96376; 99285; G0378; J0132; J0696; J2405; J3480; J7030; J7060; J7070

== ENCOUNTER 2019-07-15 11:46 | Emergency (ER) | payer MEDICAID ==
[~2019-07-15] VITALS: Ht 154.9 cm; Wt 50.0 kg
[~2019-07-15 11:46] MED LIST: NO HOME MEDS
--- NOTE | 2019-07-15 12:35 | NUR ---
pt brought back to overflow bed 21 from triage with mom. pt changed into green scrubs, belongings bagged, and oriented to unit. pt quiet and appears to be calm and friendly. pts mom states pt has been on a 5150 before.
[2019-07-15 13:02] LABS: CLARITY,URINE SLIGHTLY CLOUDY (Clear); COLOR,URINE YELLOW (Yellow); GLUCOSE, URINE NEGATIVE (Neg); KETONES,URINE NEGATIVE (Neg); LEUKOCYTE ESTERASE ,URINE NEGATIVE (Neg); NITRITES, URINE NEGATIVE (Neg); OCCULT BLOOD,URINE NEGATIVE (Neg); PROTEIN,URINE NEGATIVE (Neg); UROBILINOGEN,URINE 0.2 E.U/dL (0.2-1.0)
[2019-07-15 13:03] LABS: UA COLLECTION TYPE NON-SPECIFIED
[2019-07-15 13:05] LABS: BASOPHILS # (AUTO) 0.1 X10'3 (0-0.2); BASOPHILS % (AUTO) 0.9 % (0-1); EOSINOPHILS # (AUTO) 0.4 X10'3 (0-0.9); EOSINOPHILS % (AUTO) 5.5 % (0-6); HEMATOCRIT 41.9 % (35.0-45.0); HEMOGLOBIN 14.5 g/dl (12.0-16.0); LYMPHOCYTES # (AUTO) 1.8 X10'3 (1.1-4.8); LYMPHOCYTES % (AUTO) 27.7 % (21-51); MEAN CORPUSCULAR HEMOGLOBIN 30.7 PG (27.0-31.0); MEAN CORPUSCULAR HGB CONC 34.6 g/dL (33.0-36.5); MEAN CORPUSCULAR VOLUME 88.6 FL (78-98); MEAN PLATELET VOLUME 6.7 FL (7.4-10.4); MONOCYTES # (AUTO) 0.5 X10'3 (0-0.9); MONOCYTES % (AUTO) 7.7 % (2-12); NEUTROPHILS # (AUTO) 3.7 X10'3 (1.8-7.7); NEUTROPHILS % (AUTO) 58.2 % (42-75); PLATELET COUNT 324 X10'3 (140-440); RED BLOOD COUNT 4.73 X10'6 (4.20-5.60); RED CELL DISTRIBUTION WIDTH 13.4 % (11.5-14.5); WHITE BLOOD COUNT 6.4 X10'3 (4.5-11.0)
[2019-07-15 13:06] LABS: URINE AMPHETAMINE SCREEN NEGATIVE (Neg); URINE BARBITUATE SCREEN NEGATIVE (Neg); URINE BENZODIAZEPINES SCREEN NEGATIVE (Neg); URINE CANNABINOID SCREEN NEGATIVE (Neg); URINE COCAINE SCREEN NEGATIVE (Neg); URINE METHADONE SCREEN NEGATIVE (Neg); URINE OPIATE SCREEN NEGATIVE (Neg); URINE PHENCYCLIDINE SCREEN NEGATIVE (Neg)
[2019-07-15 13:11] LABS: SQUAMOUS EPITHELIAL CELL,UR MANY /LPF (FEW)
[2019-07-15 13:12] LABS: MUCUS STRANDS NONE SEEN /LPF (Neg); WBC,URINE 0-4 /HPF (0-4)
[2019-07-15 13:13] LABS: BACTERIA,URINE 1+ /HPF (Neg); RBC,URINE NONE SEEN /HPF (0-2)
[2019-07-15 13:24] LABS: ALBUMIN 4.2 G/DL (3.4-5.0); ANION GAP 6 (8-16); BLOOD UREA NITROGEN 19 MG/DL (7-18); BUN/CREATININE RATIO 24.7 (6.6-38.0); CHLORIDE 104 MMOL/L (99-107); CREATININE 0.77 MG/DL (0.40-0.90); ETHANOL < 0.010 GM/DL (0.0-0.010); GLUCOSE 95 MG/DL (70-104); POTASSIUM 3.9 MMOL/L (3.5-5.1); SODIUM 140 MMOL/L (135-145); TOTAL CARBON DIOXIDE 29.9 MMOL/L (24-32); eGFR > 90 ML/MIN
--- NOTE | 2019-07-15 15:05 | NUR ---
JONES Deedee at bedside to talk to pt and called pts mom on the phone to talked to mom about why she brought the pt to the hospital. PA requesting for Psychiatrist in [facility] to see pt for med recommendations. Called upstairs to notify them of need for doctor to see her. PA putting pt on 1798 at this time until she can be seen by Psychiatry.
--- NOTE | 2019-07-15 15:17 | NUR ---
pt briefly stepped outside of the unit to get a sip of her moms coffee. pt instructed not to do that by mom and did it anyway. security at bedside and talked to pt about not leaving the unit.
--- NOTE | 2019-07-15 15:34 | NUR ---
PACKET FAXED TO [facility]
--- NOTE | 2019-07-15 16:24 | NUR ---
pt resting quietly in bed.
--- NOTE | 2019-07-15 17:30 | NUR ---
spoke with Dr. Bhatia on the phone about pt and stated he would see pt tomorrow AM. MD states if pt needs any emergency meds until he sees her we can let him or the ER doctors know. Pt states she is not on any medications at this time because she just prefers to not be on them. Pt states she was prescribed Aderol XL 15mg about 2 months ago and stopped taking it. And about a year ago she was on Lexapro 10mg on and off for a week then stopped taking it because she didn't want to. Pt states she uses [facility] as her pharmacy.
--- NOTE | 2019-07-15 18:35 | NUR ---
Assumed care of patient. Pt. sitting up in bed A&Ox4. Respirations even and unlabored. Pt. is teary-eyed "I don't want to be here."
--- NOTE | 2019-07-15 20:40 | NUR ---
Patient discharged with mother. Pt. amulated out to private vehicle. Pt. was alert and oriented. Pt's belongings were returned to her. Pt lives with mother on same property. Pt. will make f/u appt with [facility].
[2019-07-15 20:53] VITALS: BP 113/79
== END 2019-07-15 21:05 | disposition home or self-care (01) ==
LOC: ER 11:46
DX: R45.851 Suicidal ideations (principal); R94.6 Abnormal results of thyroid function studies
CPT/HCPCS: 36415; 80048; 80305; 80320; 81001; 84443; 85025; 99285

== ENCOUNTER 2019-12-06 18:59 | Emergency (ER) | payer MEDICAID ==
[~2019-12-06] VITALS: Ht 154.9 cm; Wt 65.9 kg
[2019-12-06 19:00] VITALS: BP 123/79
== END 2019-12-06 19:39 | disposition home or self-care (01) ==
LOC: ER 18:59
DX: M25.551 Pain in right hip (principal); F32.9 Major depressive disorder, single episode, unspecified; F15.90 Other stimulant use, unspecified, uncomplicated
CPT/HCPCS: 99281

== ENCOUNTER 2020-06-23 12:06 | Emergency (ER) | payer MEDICARE, MEDICAID ==
[~2020-06-23] VITALS: Ht 154.9 cm; Wt 59.1 kg
== END 2020-06-23 12:40 | disposition home or self-care (01) ==
LOC: ER 12:06
DX: J06.9 Acute upper respiratory infection, unspecified (principal); Z20.822 Contact with and (suspected) exposure to COVID-19; R50.9 Fever, unspecified; R11.0 Nausea; R43.8 Other disturbances of smell and taste; F32.9 Major depressive disorder, single episode, unspecified
CPT/HCPCS: 36415; 87635; 99283

== ENCOUNTER 2020-07-08 19:14 | Emergency (ER) | payer MEDICARE, MEDICAID ==
[~2020-07-08] VITALS: Ht 154.9 cm; Wt 59.2 kg
[2020-07-08 19:18] VITALS: BP 140/89
== END 2020-07-08 21:40 | disposition left against medical advice (07) ==
LOC: ER 19:15
DX: Z11.3 Encounter for screening for infections with a predominantly sexual mode of transmission (principal); Z53.21 Procedure and treatment not carried out due to patient leaving prior to being seen by health care provider

== ENCOUNTER 2022-06-08 22:15 | Emergency (ER) | payer MEDICARE, MEDICAID ==
[~2022-06-08] VITALS: Ht 154.9 cm; Wt 54.5 kg
[2022-06-08 22:26] VITALS: BP 109/53
[2022-06-08] MEDS ORDERED: bacitracin 15gm ointment TP ONE (22:50)
[2022-06-08] MEDS ORDERED: LIDOCAINE 2%/EPI 1:100,000 inj. Multi-dose 20 ML VIAL IJ ONE (22:50)
== END 2022-06-08 23:37 | disposition home or self-care (01) ==
LOC: ER 22:16
DX: S01.81XA Laceration without foreign body of other part of head, initial encounter (principal); W19.XXXA Unspecified fall, initial encounter; Y93.89 Activity, other specified; Y92.89 Other specified places as the place of occurrence of the external cause; Y99.8 Other external cause status
CPT/HCPCS: 12011; 99282

== ENCOUNTER 2022-06-26 20:17 | Emergency (ER) | payer MEDICARE, MEDICAID ==
[~2022-06-26] VITALS: Ht 154.9 cm; Wt 56.8 kg
[2022-06-26 20:40] VITALS: BP 117/61
== END 2022-06-26 23:00 | disposition home or self-care (01) ==
LOC: ER 20:17
DX: S62.327A Displaced fracture of shaft of fifth metacarpal bone, left hand, initial encounter for closed fracture (principal); F32.A Depression, unspecified; X58.XXXA Exposure to other specified factors, initial encounter; Y93.89 Activity, other specified; Y92.89 Other specified places as the place of occurrence of the external cause; Y99.8 Other external cause status
CPT/HCPCS: 73630; 99283